=== PATIENT | female | born 1980 | race African-American/Black ===

== ENCOUNTER → 2017-07-30 | Day surgery (SDC) | payer BC ==
[~2017-07-30] MED LIST: MIDAZOLAM HCL 2 MG/2 ML VIAL ONE; PROPOFOL 500 MG/50 ML BTL IV ONE; SODIUM CHLOR 0.9% 250 ML INJ 250 ML IV ONE
--- NOTE | 2017-07-30 13:57 | GIPROC ---
[facility] [address], [address] EGD PROCEDURE REPORT EXAM DATE: 07/30/2017 PATIENT NAME: Ervin Romero MR #: [id number] BIRTHDATE: 1980 ATTENDING: Grupo Garcia MD ORDER #: [id number] PRESS OPERATOR CARBON PRODUCTS: none STATUS: outpatient INDICATIONS: The patient is a 37 yr old female here for an EGD due to assess heartburn and hiatal hernia PROCEDURE PERFORMED: EGD w/ biopsy MEDICATIONS: None and Per Anesthesia. TOPICAL ANESTHETIC: none CONSENT: The patient understands the risks and benefits of the procedure and understands that these risks include, but are not limited to: sedation, allergic reaction, infection, perforation and/or bleeding. Alternative means of evaluation and treatment include, among others: physical exam, x-rays, and/or surgical intervention. The patient elects to proceed with this endoscopic procedure. medical equipment was checked for proper function. Hand hygiene and appropriate measures for infection prevention was taken. After the risks, benefits and alternatives of the procedure were thoroughly explained, Informed consent was verified, confirmed and timeout was successfully executed by the treatment team. The patient was anesthetized with anesthesia and the EG-[id number] ([id number]) endoscope was introduced through the mouth and advanced to the second portion of the duodenum. Biopsy done to the antrum to assess gastritis and h.pylori. Retroflexed views revealed a small hiatal hernia The gastroscope was then slowly withdrawn and removed. ESOPHAGUS: A 1cm hiatal hernia was noted. ADVERSE EVENTS: There were no complications. IMPRESSIONS: 1. 1cm small hiatal hernia 2. Retroflexed views revealed a hiatal hernia RECOMMENDATIONS: Await biopsy results. Biopsy results will not be ready for 7-10 days. If you don't hear from us in two weeks, call our office for biopsy results. PATIENT CONDITION: fair DISPOSITION: Home REPEAT EXAM: NONE Grupo Garcia MD eSigned: Grupo Garcia MD 07/30/2017 1:57 PM cc: Grupo Garcia MD
== END | disposition home or self-care (01) ==
LOC: ESDC 12:29
PROVIDERS: ATTEND Surgery
DX: R12 Heartburn (principal); K44.9 Diaphragmatic hernia without obstruction or gangrene
CPT/HCPCS: 00731; 43239; 88305; 88312; J2250; J3010; J7050

== ENCOUNTER 2017-09-18 05:10 | Inpatient (IN) | payer BC ==
[~2017-09-18] VITALS: Ht 167.6 cm; Wt 180.9 kg
[~2017-09-18 05:10] MED LIST changes: +FERR325T18 PO; +METF1000 PO; -MIDAZOLAM HCL 2 MG/2 ML VIAL ONE; +MULT-65 PO; -PROPOFOL 500 MG/50 ML BTL IV ONE; -SODIUM CHLOR 0.9% 250 ML INJ 250 ML IV ONE
[2017-09-18] MEDS ORDERED: ceFAZolin 2 GM PREMIX 50 ML IV SCH (05:45)
[2017-09-18] MEDS ORDERED: ONDANSETRON HCL 4 MG/2 ML VIAL IV PUSH SCH (05:45)
[2017-09-18] MEDS ORDERED: metroNIDAZOLE 500 MG INJ 100 ML IV SCH (05:45)
[2017-09-18] MEDS ORDERED: POVIDONE IODINE 5% (ANTISEPSIS KIT) 4 APPLICATIONS EACH NARE PRN (05:45)
[2017-09-18] MEDS ORDERED: SODIUM CHLORID 0.9% 500 ML IV PRN (05:45)
[2017-09-18] MEDS ORDERED: ACETAMINOPHEN 1000 MG/100 ML 100 ML IV SCH (05:45)
[2017-09-18] MEDS ORDERED: LACTATED RINGER'S 1000 ML IV PRN (05:45)
[2017-09-18] MEDS ORDERED: METOPROLOL TARTRATE 25 MG TAB PO PRN (05:45)
[2017-09-18] MEDS ORDERED: CHLORHEXIDINE GLUCONATE 2 % 1 PACK (2 CLOTHS) TOPICAL PRN (05:45)
[2017-09-18] MEDS ORDERED: APREPITANT 40 MG CAP PO SCH (05:45)
[2017-09-18] MEDS ORDERED: SCOPOLAMINE 1.5 MG PATCH T-DERMAL SCH (05:45)
[2017-09-18] MEDS ORDERED: BUPIVACAINE/EPINEPHRINE 0.25% 50 ML VIAL ONE (06:52)
[2017-09-18] MEDS ORDERED: ACETAMINOPHEN 1000 MG/100 ML 0 ML IV ONE (07:11)
[2017-09-18] MEDS ORDERED: SUGAMMADEX SODIUM 200 MG/2 ML VIAL IV PUSH ONE ×2 (07:12→14:52)
[2017-09-18] MEDS ORDERED: FAMOTIDINE 20 MG/2 ML VIAL ONE (07:12)
[2017-09-18] MEDS ORDERED: ARTIFICIAL TEARS OPTH OINT 3.5 APPLIC/3.5 GM TUBO ONE (07:12)
[2017-09-18 07:53] LABS: BASOPHIL # 0.1 TH/MM3 (0-0.2); EOSINOPHIL # 0.2 TH/MM3 (0-0.4); EOSINOPHIL % 2.2 % (0.0-4.0); HEMATOCRIT 30.8 % (35.0-46.0); HEMOGLOBIN 9.6 GM/DL (11.6-15.3); LYMPH % 25.1 % (9.0-44.0); LYMPHOCYTE # 2.3 TH/MM3 (1.0-4.8); MEAN CELL VOLUME 67.5 FL (80.0-100.0); MEAN CORPUSCULAR HEMOGLOBIN 21.1 PG (27.0-34.0); MEAN CORPUSCULAR HGB CONC 31.3 % (32.0-36.0); MEAN PLATELET VOLUME 7.6 FL (7.0-11.0); MONO % 5.3 % (0.0-8.0); MONOCYTE # 0.5 TH/MM3 (0-0.9); NEUT % 66.4 % (16.0-70.0); PLATELET COUNT 370 TH/MM3 (150-450); RED BLOOD COUNT 4.56 MIL/MM3 (4.00-5.30); RED CELL DISTRIBUTION WIDTH 17.6 % (11.6-17.2); WHITE BLOOD COUNT 9.1 TH/MM3 (4.0-11.0)
[2017-09-18 08:22] LABS: BICARBONATE 25.6 MEQ/L (21.0-32.0); CALCIUM 8.8 MG/DL (8.5-10.1); CREATININE 0.93 MG/DL (0.50-1.00)
[2017-09-18] MEDS ORDERED: ceFAZolin INJ 1,000 MG VIAL IV ONE (12:00)
[2017-09-18] MEDS ORDERED: PHENYLEPH/NS 1000 MCG/10 ML SYR IV ONE (12:00)
[2017-09-18] MEDS ORDERED: LABETALOL HCL 100 MG/20 ML VIAL IV ONE (12:00)
[2017-09-18] MEDS ORDERED: ESMOLOL HCL 100 MG/10 ML VIAL IV ONE (12:00)
[2017-09-18] MEDS ORDERED: VECURONIUM BROMIDE 20 MG VIAL IV ONE (12:00)
[2017-09-18] MEDS ORDERED: PHENYLEPHRINE HCL 10 MG/ML VIAL IV ONE (12:00)
[2017-09-18] MEDS ORDERED: DEXAMETHASONE SOD PHOS 4 MG/ML VIAL IV ONE (12:00)
[2017-09-18] MEDS ORDERED: SUCCINYLCHOLINE CHLORIDE 200 MG/10 ML VIAL IV ONE (12:00)
[2017-09-18] MEDS ORDERED: ONDANSETRON HCL 4 MG/2 ML VIAL IV ONE (12:00)
[2017-09-18] MEDS ORDERED: STERILE WATER FOR INJECTION 20 ML VIAL IV ONE (12:00)
[2017-09-18] MEDS ORDERED: LIDOCAINE HCL 1% PF 5 ML SYRINGE OTHER ONE (12:00)
[2017-09-18] MEDS ORDERED: ROCURONIUM INJ 50 MG/5 ML SYRINGE IV PUSH ONE (12:00)
[2017-09-18] MEDS ORDERED: PROPOFOL 200 MG/20 ML AMP IV ONE (12:00)
[2017-09-18] MEDS ORDERED: LACTATED RINGER'S 1000 ML INJ 1,000 ML IV ONE (12:00)
[2017-09-18] MEDS ORDERED: VECURONIUM BROMIDE 20 MG VIAL ONE (12:55)
[2017-09-18] MEDS ORDERED: DO NOT ADM ANY ANTICOAGULANT DRUGS PRN (15:08)
[2017-09-18] MEDS ORDERED: NALOXONE HCL 0.4 MG/ML AMP IV PUSH PRN (15:15)
[2017-09-18] MEDS ORDERED: MIDAZOLAM HCL 2 MG/2 ML VIAL ONE (15:18)
[2017-09-18] MEDS ORDERED: *morphine SULFATE 4 MG/ML PERIprocedure ONLY ONE (15:43)
--- NOTE | 2017-09-18 15:51 | HHI.PR ---
Immediate Post Op Note Procedure Date: Sep 18, 2017 Pre Op Diagnosis: morbid obesity, bmi 64, ferdinand, dm Post Op Diagnosis: same Surgeon: Grupo Garcia MD Hot Roll Inspector(s): Dr. Grier Procedure: robotic asst laparoscopic biliopancreatic diversion with duodenal switch, laparoscopic lysis of adhesions Findings: multiple adhesions of the omentum to the pelvis and ovary, large ovarian cyst Complications: none Specimen(s) removed: none Estimated blood loss: 20cc Anesthesia: General Drains: YO IVF (1999) Patient to: PACU Patient Condition: Good Grupo Garcia MD Sep 18, 2017 15:51
[2017-09-18 20:00] VITALS: BP 127/69; PULSE 107; RESP 18; TEMP 97.7; O2SAT 93
[2017-09-18] MEDS: PCA - TOTAL MG MORPHINE DELIVERED PER SHIFT SCH (22:00)
[2017-09-19] VITALS (7 sets, daily range): BP systolic 101–127; BP diastolic 54–72; PULSE 62–105; RESP 17–18; TEMP 96.8–97.1; O2SAT 93–97
[2017-09-19] MEDS: PCA - TOTAL MG MORPHINE DELIVERED PER SHIFT SCH ×3 (05:01→21:27)
[2017-09-19 06:08] LABS: BASOPHIL % 0.2 % (0.0-2.0); HEMOGLOBIN 9.6 GM/DL (11.6-15.3); LYMPH % 8.8 % (9.0-44.0); LYMPHOCYTE # 1.3 TH/MM3 (1.0-4.8); MEAN CELL VOLUME 68.4 FL (80.0-100.0); MEAN CORPUSCULAR HEMOGLOBIN 21.3 PG (27.0-34.0); MEAN CORPUSCULAR HGB CONC 31.2 % (32.0-36.0); MEAN PLATELET VOLUME 8.2 FL (7.0-11.0); MONO % 5.6 % (0.0-8.0); MONOCYTE # 0.9 TH/MM3 (0-0.9); NEUT % 85.4 % (16.0-70.0); PLATELET COUNT 375 TH/MM3 (150-450); RED BLOOD COUNT 4.53 MIL/MM3 (4.00-5.30); RED CELL DISTRIBUTION WIDTH 17.9 % (11.6-17.2); WHITE BLOOD COUNT 15.2 TH/MM3 (4.0-11.0)
[2017-09-19 06:34] LABS: BICARBONATE 26.1 MEQ/L (21.0-32.0); CALCIUM 8.9 MG/DL (8.5-10.1); CREATININE 0.95 MG/DL (0.50-1.00); MAGNESIUM 2.2 MG/DL (1.5-2.5)
[2017-09-19] MEDS ORDERED: D5-1/2 NS + KCL 20 MEQ INJ 1,000 ML IV SCH (09:00)
[2017-09-19] MEDS: MORPHINE SULFATE 30 MG/30 ML PCA IV SCH ×2 (09:03→21:33)
[2017-09-19] MEDS ORDERED: GLUCAGON 1 MG/ML VIAL OTHER PRN ×2 (10:15→16:30)
[2017-09-19] MEDS ORDERED: DEXTROSE 50% IN WATER 50 ML VIAL(D50) IV PUSH PRN ×2 (10:15→16:30)
[2017-09-19] MEDS: ENOXAPARIN SODIUM 40 MG/0.4 ML SYRINGE SQ SCH (10:48)
[2017-09-19] MEDS: ACETAMINOPHEN 1000 MG/100 ML 100 ML IV SCH ×3 (10:49→21:27)
[2017-09-19] MEDS ORDERED: INSULIN NovoLIN REGULAR SUPPLEMENTAL SCALE SQ SCH (12:00)
--- NOTE | 2017-09-19 12:24 | HHI.PR ---
Subjective Subjective Notes C/O post-op pain YO drain with minimal serous output Denies nausea Objective Vitals/I&O Vital Signs Date Time Temp Pulse Resp B/P (MAP) Pulse Ox O2 Delivery O2 Flow Rate FiO2 09/19/17 12:00 97.0 69 18 113/65 (81) 97 09/18/17 18:00 Nasal Cannula 2 Labs Laboratory Tests Test 09/19/17 05:18 White Blood Count 15.2 Red Blood Count 4.53 Hemoglobin 9.6 Hematocrit 31.0 Mean Corpuscular Volume 68.4 Mean Corpuscular Hemoglobin 21.3 Mean Corpuscular Hemoglobin Concent 31.2 Red Cell Distribution Width 17.9 Platelet Count 375 Mean Platelet Volume 8.2 Neutrophils (%) (Auto) 85.4 Lymphocytes (%) (Auto) 8.8 Monocytes (%) (Auto) 5.6 Eosinophils (%) (Auto) 0.0 Basophils (%) (Auto) 0.2 Neutrophils # (Auto) 13.0 Lymphocytes # (Auto) 1.3 Monocytes # (Auto) 0.9 Eosinophils # (Auto) 0.0 Basophils # (Auto) 0.0 CBC Comment DIFF FINAL Differential Comment Blood Urea Nitrogen 13 Creatinine 0.95 Random Glucose 245 Calcium Level 8.9 Magnesium Level 2.2 Sodium Level 138 Potassium Level 4.2 Chloride Level 103 Carbon Dioxide Level 26.1 Anion Gap 9 Estimat Glomerular Filtration Rate 81 Cardiovascular: Regular Lungs: Other (diminished) Abdomen: Post-op tenderness Extremities: Perfused Wound Wound : Wound Location: Abdomen Appearance: Clean & Dry A/P Assessment and Plan 37yo F POD#1 robot-assisted laparoscopic duodenal switch -recheck H&H at noon, BMP, Mg, CBC in AM -Increase fluids as tolerated -Ambulate halls QID -SLS increased to medium dose, metformin restarted Discharge Planning Depending on hospital course Attending Statement patient seen at bedside no fevers, c/o pain ok for sips today keep iyer for Is and 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
[2017-09-19 13:20] LABS: HEMATOCRIT 30.8 % (35.0-46.0); HEMOGLOBIN 9.7 GM/DL (11.6-15.3)
[2017-09-19] MEDS ORDERED: 1/2 NS + KCL 20 MEQ INJ 1,000 ML IV SCH (16:30)
[2017-09-19] MEDS ORDERED: PLEASE DISCONTINUE PREVIOUS SUPPLEMENTAL SCALE INSULIN ORDERS ONE (16:30)
--- NOTE | 2017-09-19 16:43 | MP ---
cc: Grupo Garcia MD DATE OF OPERATION: 09/18/2017 PREOPERATIVE DIAGNOSES: Morbid obesity, body mass index of 64, obstructive sleep apnea, diabetes. POSTOPERATIVE DIAGNOSES: Morbid obesity, body mass index of 64, obstructive sleep apnea, diabetes, adhesions. SURGEON: Grupo Garcia MD [employer] SUPERINTENDENT: Chaitanya Linn MD. Dr. Linn was needed due to the complexity of the robotic case. Dr. Linn assisted with camera control and retraction. PROCEDURE PERFORMED: 1. Robotic-assisted biliopancreatic diversion with duodenal switch. 2. Laparoscopic lysis of adhesions. ANESTHESIA: GETA. IV FLUIDS: 2000 mL ESTIMATED BLOOD LOSS: 20 mL DRAINS: A 19-Salvadorean Jasmeet drain. SPECIMENS: None. FINDINGS: Multiple intra-abdominal adhesions in the omentum down in the pelvis. A significant sized ovarian cyst. No leak with methylene blue. WOUND CLASSIFICATION: Clean/contaminated. INDICATIONS FOR PROCEDURE: The patient is a 37-year-old female who presented with multiple attempts at weight loss without success. The patient has multiple comorbidities including morbid obesity, BMI of 64, obstructive sleep apnea and diabetes. Decision was made after discussion in detail regarding bariatric operations and options for duodenal switch biliopancreatic diversion. DETAILS OF PROCEDURE: The patient was taken to the operating suite, placed in the supine position. She was prepped and draped in usual sterile fashion after induction of general endotracheal anesthesia. Brief timeout done stating the correct patient, procedure, surgical site. We were all in agreement with this. Attention was directed first to the left upper quadrant where an Optiview 5 mm port was used to enter the abdomen safely. This was done with a Visiport. The abdomen was insufflated to 15 mm pneumoperitoneum. On cursory inspection, no evidence of injury. Visualization of the abdominal cavity noted several adhesions, especially the omentum and the deep pelvis. Also noted was a significant sized ovarian cyst. Next, several other ports were placed. A 12 mm supraumbilical port was placed followed by a 5 mm left upper quadrant port that was changed to an 8 mm robotic port. A 5 mm subxiphoid port was also changed. Another 8 mm robotic port in the right upper quadrant, followed by a 12 mm right lower quadrant port and another 8 mm left lower quadrant port. The left lobe of the liver was retracted by grasping with Allis clamp through the epigastric port and grabbing the left bryce of the diaphragm. This was attached with a Ray-Jamey and hemostat. Next, the patient was placed in Trendelenburg and airplaned to the left. The terminal ileum was attempted to be identified. This was not successful due to adhesions that were noted from the omentum down to the deep pelvis. A Harmonic scalpel was obtained in order to mobilize and lyse intra-abdominal adhesions down in the pelvis. After a full mobilization of the omentum in order to completely expose and clear the small bowel especially with the terminal ileum, this omentum was retracted up. Once the terminal ileum was identified, it was walked 250 cm and was marked with 2 sutures, one Vicryl was proximal suture, followed by a distal silk suture. A proximal suture was to be marked for the biliopancreatic limb and distal suture was to be marked for the common channel. Next, the patient was placed in reverse Trendelenburg and the da Tianna system SI was docked. After that, we robotically dissected the border of the distal antrum proximal to the duodenum and created a window underneath the duodenum. This was done with a long tip grasper, Harmonic and bipolar forceps. Once a window was created a [place] was placed. After that, we went ahead and detached the greater omentum from the greater curvature of the stomach. We did this with a Harmonic scalpel, changed the long forceps in arm #2 and changed to fenestrated bipolar in arm #1. So again, Harmonic was in arm #3, coude was in arm #1, fenestrated bipolar was in arm #2. The greater curvature of the stomach 6 cm from the pylorus all the way up to the angle of His was taken down and the fat pad over the angle of His was incised. The patient also noted to have significant fatty liver as well that made dissection somewhat difficult. Next, a 40-Salvadorean ViSiGi bougie was directed toward the antrum by anesthesia. This was done with the use of the calibration device in order to facilitate our sleeve gastrectomy in removing approximately 65% of the stomach. The trading assistant port was used with an EthiReflex endo GI stapler, initial black load followed by green load and gold loads to transect the greater curvature of the stomach, creating our sleeve gastrectomy. We did note to spare some space at the angle of His, also again noting to make somewhat of a looser sleeve gastrectomy. Once this was done and we were content with this, also noted abel reinforced with SeamGuard. Next, our attention was directed toward the duodenum where the [place] had been placed. A transection with a blue load 3 cm distal to the pylorus was done. Following this, we brought the proximal and distal portion of the ileum in proximity to the duodenum to facilitate our duodenal ileal anastomosis. We did the anastomosis using a 2-0 Polysorb and a handsewn double layer technique; 2-0 Polysorb was used also next for a chcieol-kna-tauibqj layer and an anterior reinforced Lembert suture was done to the anterior and a seromuscular layer. Next, the anastomosis was tested with methylene blue. There was no evidence for leaking; 60 mL x 2 was used via the ViSiGi 40-Salvadorean bougie. Also, the methylene blue was noted to go through the proximal and distal portions of the loop, proving them to be patent for both the common channels and the biliopancreatic limbs, and rosaura limbs. The limbs were anchored. Next, suction irrigation was done. Hemostatic agent including a little bit of SNoW was placed proximally at the duodenal stump, also a small piece placed on the liver capsule itself. Next, epithelial sealant spray was used on all anastomoses and staple lines to assist with hemostasis. Next, a drain was placed. A 19-Salvadorean Jasmeet placed through the right upper quadrant port and was placed in the left upper quadrant across the anastomosis and sleeve gastrectomy. The ViSiGi bougie was suctioned, methylene blue and removed. Next, the stomach was removed through the right lower quadrant 12 mm port. This was done after undocking the robot and reconvening laparoscopically. The fascia to both the 12 ports, the right lower quadrant port and the umbilical port were closed with a [id number] 0 Vicryl suture. Next, 4-0 Monocryl was done at all incision sites. Following this, a sterile dressing was placed, including Mastisol and Steri-Strips. All lap and instrument counts were correct at the end of the procedure. The patient tolerated the procedure well. There was no intraoperative complications. The patient was extubated and taken to PACU. Lars S. Jose, MD LSN/MIMA/rh , 03:16 PM , 04:23 PM MTDSusan
[2017-09-19] MEDS: metFORMIN HCL 500 MG TAB PO SCH (17:41)
[2017-09-19] MEDS: MEDIUM DOSE INSULIN NOVOLIN REGULAR SUPPLEMENTAL SCALE SQ SCH ×2 (17:41→21:26)
[2017-09-19] MEDS ORDERED: ONDANSETRON HCL 4 MG/2 ML VIAL IV PUSH PRN (18:45)
[2017-09-19] MEDS ORDERED: METOCLOPRAMIDE HCL 10 MG/2 ML VIAL IV PRN (18:45)
[2017-09-20] VITALS (7 sets, daily range): BP systolic 105–142; BP diastolic 55–95; PULSE 68–76; RESP 17–18; TEMP 96.6–98.3; O2SAT 94–99
[2017-09-20] MEDS: ACETAMINOPHEN 1000 MG/100 ML 100 ML IV SCH ×4 (05:46→23:01)
[2017-09-20] MEDS: D5-1/2 NS + KCL 20 MEQ INJ 1,000 ML IV SCH ×3 (05:48→16:18)
[2017-09-20] MEDS: PCA - TOTAL MG MORPHINE DELIVERED PER SHIFT SCH ×3 (05:48→19:53)
[2017-09-20 06:22] LABS: AUTOMATED NEUTROPHIL # 7.1 TH/MM3 (1.8-7.7); BASOPHIL % 0.4 % (0.0-2.0); EOSINOPHIL # 0.1 TH/MM3 (0-0.4); EOSINOPHIL % 0.9 % (0.0-4.0); HEMATOCRIT 30.1 % (35.0-46.0); HEMOGLOBIN 9.2 GM/DL (11.6-15.3); LYMPH % 23.3 % (9.0-44.0); LYMPHOCYTE # 2.5 TH/MM3 (1.0-4.8); MEAN CELL VOLUME 68.9 FL (80.0-100.0); MEAN CORPUSCULAR HGB CONC 30.5 % (32.0-36.0); MONO % 8.1 % (0.0-8.0); MONOCYTE # 0.9 TH/MM3 (0-0.9); NEUT % 67.3 % (16.0-70.0); PLATELET COUNT 371 TH/MM3 (150-450); RED BLOOD COUNT 4.37 MIL/MM3 (4.00-5.30); RED CELL DISTRIBUTION WIDTH 17.9 % (11.6-17.2); WHITE BLOOD COUNT 10.6 TH/MM3 (4.0-11.0)
[2017-09-20 07:03] LABS: BICARBONATE 26.1 MEQ/L (21.0-32.0); CALCIUM 8.1 MG/DL (8.5-10.1); CREATININE 1.04 MG/DL (0.50-1.00); MAGNESIUM 1.9 MG/DL (1.5-2.5)
[2017-09-20] MEDS: MEDIUM DOSE INSULIN NOVOLIN REGULAR SUPPLEMENTAL SCALE SQ SCH ×4 (08:19→19:52)
[2017-09-20] MEDS: metFORMIN HCL 500 MG TAB PO SCH ×2 (08:20→17:37)
[2017-09-20] MEDS: MULTIVITAMIN INJ 10 ML, THIAMINE INJ 100 MG, FOLIC ACID INJ 1 MG in SODIUM CHLOR 0.45% ... IV SCH (08:21)
[2017-09-20] MEDS: ENOXAPARIN SODIUM 40 MG/0.4 ML SYRINGE SQ SCH (10:35)
[2017-09-20] MEDS ORDERED: ACETAMINOPHEN 325MG/HYDROcodone 7.5MG/15ML UDC PO PRN (10:45)
[2017-09-20] MEDS: ACETAMINOPHEN 325MG/HYDROcodone 7.5MG/15ML UDC PO PRN (12:49)
--- NOTE | 2017-09-20 12:54 | HHI.PR ---
Subjective Subjective Notes Doing somewhat better today. Tolerating fluids. Pain better controlled, labs stable Objective Vitals/I&O Vital Signs Date Time Temp Pulse Resp B/P (MAP) Pulse Ox O2 Delivery O2 Flow Rate FiO2 09/20/17 09:40 99 21 09/20/17 08:00 97.4 69 18 120/60 (80) 09/19/17 16:07 Nasal Cannula 2.00 Labs Laboratory Tests Test 09/19/17 13:05 09/20/17 03:37 Hemoglobin 9.7 9.2 Hematocrit 30.8 30.1 White Blood Count 10.6 Red Blood Count 4.37 Mean Corpuscular Volume 68.9 Mean Corpuscular Hemoglobin 21.0 Mean Corpuscular Hemoglobin Concent 30.5 Red Cell Distribution Width 17.9 Platelet Count 371 Mean Platelet Volume 8.0 Neutrophils (%) (Auto) 67.3 Lymphocytes (%) (Auto) 23.3 Monocytes (%) (Auto) 8.1 Eosinophils (%) (Auto) 0.9 Basophils (%) (Auto) 0.4 Neutrophils # (Auto) 7.1 Lymphocytes # (Auto) 2.5 Monocytes # (Auto) 0.9 Eosinophils # (Auto) 0.1 Basophils # (Auto) 0.0 CBC Comment DIFF FINAL Differential Comment Blood Urea Nitrogen 13 Creatinine 1.04 Random Glucose 146 Calcium Level 8.1 Magnesium Level 1.9 Sodium Level 137 Potassium Level 3.9 Chloride Level 103 Carbon Dioxide Level 26.1 Anion Gap 8 Estimat Glomerular Filtration Rate 73 Cardiovascular: Regular Abdomen: Post-op tenderness Extremities: Perfused Wound Wound : Wound Location: Abdomen Appearance: Clean & Dry A/P Assessment and Plan 37yo F POD#2 robot-assisted biliopancreatic diversion laparoscopic duodenal switch -Increase fluids as tolerated -Ambulate halls QID -Continue to monitor bedside glucose Discharge Planning Depending on hospital course Attending Statement patient seen at bedside progressing well c/o pain but improving 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 I reviewed and agree with the findings presented. I attest that I had a [id number] encounter with the patient on the same day, and personally performed and documented my assessment and findings in the medical record. Hermilo Martinez Sep 20, 2017 12:54 Grupo Garcia MD Sep 25, 2017 07:30
[2017-09-20] MEDS: MORPHINE SULFATE 30 MG/30 ML PCA IV SCH (19:56)
[2017-09-21] VITALS: BP 131/63; PULSE 73; RESP 17; TEMP 97.7; O2SAT 96
[2017-09-21] MEDS: D5-1/2 NS + KCL 20 MEQ INJ 1,000 ML IV SCH ×3 (02:05→16:19)
[2017-09-21 04:40] VITALS: BP 136/70; PULSE 72; RESP 18; TEMP 97.8; O2SAT 95
[2017-09-21] MEDS: ACETAMINOPHEN 1000 MG/100 ML 100 ML IV SCH ×4 (04:47→23:18)
[2017-09-21] MEDS: PCA - TOTAL MG MORPHINE DELIVERED PER SHIFT SCH (04:49)
[2017-09-21] MEDS ORDERED: MORPHINE SULFATE 2 MG/ML INJ IV PUSH PRN (06:30)
--- NOTE | 2017-09-21 06:52 | HHI.PR ---
Subjective Subjective Notes tolerating liquids well, +flatus, oob, no fevers Objective Vitals/I&O Vital Signs Date Time Temp Pulse Resp B/P (MAP) Pulse Ox O2 Delivery O2 Flow Rate FiO2 09/21/17 04:49 16 09/21/17 04:40 97.8 72 136/70 (92) 95 09/20/17 09:40 21 09/19/17 16:07 Nasal Cannula 2.00 Lungs: Clear Abdomen: Other (incisional tenderness, emy serosang) A/P Assessment and Plan 37yo F POD#3 robot-assisted laparoscopic duodenal switch -Increase po fluids as tolerated -Ambulate halls QID -Continue to monitor bedside glucose - dvt ppx - amylase in emy pending will remove drain if lab value normal - d/c plan today - discussed with patient understands and agrees Grupo Garcia MD Sep 21, 2017 06:52
[2017-09-21 08:00] VITALS: BP 126/60; PULSE 79; RESP 17; TEMP 98.2; O2SAT 94
[2017-09-21] MEDS: MEDIUM DOSE INSULIN NOVOLIN REGULAR SUPPLEMENTAL SCALE SQ SCH ×4 (08:00→20:39)
[2017-09-21] MEDS: metFORMIN HCL 500 MG TAB PO SCH ×2 (08:37→17:23)
[2017-09-21] MEDS: MULTIVITAMIN INJ 10 ML, THIAMINE INJ 100 MG, FOLIC ACID INJ 1 MG in SODIUM CHLOR 0.45% ... IV SCH (09:00)
[2017-09-21] MEDS: ACETAMINOPHEN 325MG/HYDROcodone 7.5MG/15ML UDC PO PRN ×3 (09:46→20:38)
[2017-09-21] MEDS: ENOXAPARIN SODIUM 40 MG/0.4 ML SYRINGE SQ SCH (11:00)
[2017-09-21 12:00] VITALS: BP 125/60; PULSE 74; RESP 18; TEMP 97.8; O2SAT 97
[2017-09-21 16:00] VITALS: BP 137/71; PULSE 82; RESP 18; TEMP 97.4; O2SAT 96
[2017-09-21 16:05] LABS: AUTOMATED NEUTROPHIL # 6.4 TH/MM3 (1.8-7.7); BASOPHIL % 0.4 % (0.0-2.0); EOSINOPHIL # 0.2 TH/MM3 (0-0.4); HEMATOCRIT 30.3 % (35.0-46.0); HEMOGLOBIN 9.5 GM/DL (11.6-15.3); LYMPH % 21.1 % (9.0-44.0); LYMPHOCYTE # 1.9 TH/MM3 (1.0-4.8); MEAN CELL VOLUME 68.9 FL (80.0-100.0); MEAN CORPUSCULAR HEMOGLOBIN 21.6 PG (27.0-34.0); MEAN CORPUSCULAR HGB CONC 31.4 % (32.0-36.0); MEAN PLATELET VOLUME 7.8 FL (7.0-11.0); MONO % 6.6 % (0.0-8.0); MONOCYTE # 0.6 TH/MM3 (0-0.9); NEUT % 69.9 % (16.0-70.0); PLATELET COUNT 368 TH/MM3 (150-450); RED CELL DISTRIBUTION WIDTH 17.7 % (11.6-17.2); WHITE BLOOD COUNT 9.2 TH/MM3 (4.0-11.0)
[2017-09-21 16:30] LABS: BICARBONATE 28.4 MEQ/L (21.0-32.0); CALCIUM 8.1 MG/DL (8.5-10.1); CREATININE 0.81 MG/DL (0.50-1.00)
[2017-09-21 20:00] VITALS: PULSE 88; RESP 19; TEMP 98.7; O2SAT 96
[2017-09-22] VITALS: BP 162/78; PULSE 76; RESP 18; TEMP 98.2; O2SAT 95
[2017-09-22] MEDS: ACETAMINOPHEN 325MG/HYDROcodone 7.5MG/15ML UDC PO PRN (00:47)
[2017-09-22 04:00] VITALS: BP 173/78; PULSE 72; RESP 18; TEMP 98.3; O2SAT 95
[2017-09-22] MEDS: ACETAMINOPHEN 1000 MG/100 ML 100 ML IV SCH ×2 (05:24→11:00)
[2017-09-22 08:00] VITALS: BP 150/79; PULSE 83; RESP 17; TEMP 97.5; O2SAT 96
[2017-09-22] MEDS: MEDIUM DOSE INSULIN NOVOLIN REGULAR SUPPLEMENTAL SCALE SQ SCH ×2 (08:00→12:00)
[2017-09-22] MEDS: D5-1/2 NS + KCL 20 MEQ INJ 1,000 ML IV SCH (08:44)
[2017-09-22] MEDS: MULTIVITAMIN INJ 10 ML, THIAMINE INJ 100 MG, FOLIC ACID INJ 1 MG in SODIUM CHLOR 0.45% ... IV SCH (08:45)
[2017-09-22] MEDS: metFORMIN HCL 500 MG TAB PO SCH (08:45)
[2017-09-22] MEDS: ENOXAPARIN SODIUM 40 MG/0.4 ML SYRINGE SQ SCH (11:00)
[2017-09-22 12:00] VITALS: BP 169/70; PULSE 74; RESP 18
[2017-09-24 14:17] LABS: LIPASE BODY FLUID 20 U/L; LIPASE SOURCE JP FLUID
[2017-09-24 14:30] LABS: AMYLASE BODY FLUID 18 U/L; AMYLASE BODY FLUID TYPE JP FLUID
--- NOTE | 2017-09-24 15:24 | HHI.DS ---
Discharge Summary Admission Date Sep 18, 2017 at 14:58 Discharge Date: Sep 21, 2017 Admitting Diagnosis Laparoscopic Duodenal Switch for Morbid Obesity Procedures Robot-assisted laparoscopic duodenal switch CBC/BMP: 09/21/17 1537 09/21/17 1537 Significant Findings Laboratory Tests Test 09/21/17 15:37 Hemoglobin 9.5 GM/DL (11.6-15.3) Hematocrit 30.3 % (35.0-46.0) Mean Corpuscular Volume 68.9 FL (80.0-100.0) Mean Corpuscular Hemoglobin 21.6 PG (27.0-34.0) Mean Corpuscular Hemoglobin Concent 31.4 % (32.0-36.0) Red Cell Distribution Width 17.7 % (11.6-17.2) Random Glucose 107 MG/DL (74-106) Calcium Level 8.1 MG/DL (8.5-10.1) PE at Discharge CARDIOVASCULAR: Regular rate and rhythm without murmurs, gallops, or rubs. RESPIRATORY: Breath sounds equal bilaterally. No accessory muscle use. GASTROINTESTINAL: Abdomen soft, mild post-op tenderness Hospital Course Ms. Romero underwent a duodenal switch for morbid obesity. The procedure took a little longer then usual due to the need for lysis of multiple adhesion. The patient underwent the normal recovery process and was sent home in stable condition Pt Condition on Discharge: Stable Discharge Disposition: Discharge Home Discharge Instructions DIET: Follow Instructions for: Bariatric Surgery Diet Activities you can perform: Shower Only-No Bath Activities to Avoid: Strenuous Activity Follow up Referrals: Surgical - 09/25/17 @ [facility] Surgeons/Trauma with Grupo Garcia MD Continued Medications: Metformin (Metformin) 1,000 Mg Tab 1000 MG PO BIDPC for Blood Sugar Management, #60 TAB 0 Refills Discontinued Medications: Ferrous Sulfate (Ferrous Sulfate) 325 Mg (65 Mg Iron) Tablet 325 MG PO DAILY for Nutritional Supplement, #30 TAB 0 Refills Multiple Vitamin (Multi-Vitamin Daily) 1 Tab Tab 1 TAB PO DAILY for Nutritional Supplement, TAB 0 Refills Additional Information This patient was examined by Dr. Garcia and this note was dictated on his behalf Hermilo Martinez Sep 24, 2017 15:23
== END 2017-09-22 16:37 | disposition home or self-care (01) | DRG 621 ==
LOC: HSDC 05:10 → EDSTATUS 07:30 → HSDI 14:58 → N07A 19:33
PROVIDERS: ADMIT Surgery; ATTEND Surgery
PROC: 0DB64Z3 Excision of Stomach, Percutaneous Endoscopic Approach, Vertical (ICD-10-PCS; 2017-09-18)
PROC: 0DNU4ZZ Release Omentum, Percutaneous Endoscopic Approach (ICD-10-PCS; 2017-09-18)
PROC: 8E0W4CZ Robotic Assisted Procedure of Trunk Region, Percutaneous Endoscopic Approach (ICD-10-PCS; 2017-09-18)
PROC: 0D194ZB Bypass Duodenum to Ileum, Percutaneous Endoscopic Approach (ICD-10-PCS; principal; 2017-09-18 07:51)
DX: E66.01 Morbid (severe) obesity due to excess calories (principal); E11.9 Type 2 diabetes mellitus without complications; G47.33 Obstructive sleep apnea (adult) (pediatric); Z68.44 Body mass index [BMI] 60.0-69.9, adult; N83.209 Unspecified ovarian cyst, unspecified side
CPT/HCPCS: 80048; 82150; 82948; 83690; 83735; 85014; 85018; 85025; 86850; 86900; 86901; 94150; J0131; J0330; J0690; J1100; J1650; J2250; J2270; J2370; J2405; J3010; J3411; J3480; J7120; J8501